=== PATIENT | female | born 1980 | race Caucasian/White ===

== ENCOUNTER 2017-02-08 08:08 | Emergency (ER) | payer BC ==
[2017-02-08] MEDS ORDERED: KETOROLAC 30 MG/ML VIAL IVP ONE (08:39)
[2017-02-08] MEDS ORDERED: 0.9 % SODIUM CHLORIDE 1,000 ML BAG IV ONE (08:39)
--- NOTE | 2017-02-08 09:02 | Emergency Department Record ---
History of Present Illness - General Chief complaint: Nausea, Vomiting, Diarrhea Stated complaint: NAUSEA Time Seen by Provider: 02/08/17 08:24 Source: Patient Mode of Arrival: Ambulatory Limitations: No limitations - History of Present Illness Initial comments: pt has had a headache for 2 wks straight that waxes and wanes but at times is the worst she has had. she also has nausea MD complaint: Nausea Onset/Timin -: Week(s) Description of Diarrhea: Other Severity: Mild Improves with: None Worsens with: Eating - Related Data Home Medications Medication Instructions Recorded Confirmed Last Taken Buspirone HCl [Buspar] 5 mg PO ASDIR 02/08/17 02/08/17 02/08/17 Hydroxyzine Pamoate [Vistaril] 25 mg PO ASDIR 02/08/17 02/08/17 02/08/17 Quetiapine Fumarate [Seroquel] 25 mg PO QHS 02/08/17 02/08/17 02/07/17 Topiramate [Topamax] 15 mg PO ASDIR 02/08/17 02/08/17 02/08/17 Allergies Allergy/AdvReac Type Severity Reaction Status Date / Time No Known Drug Intolerances Allergy Unknown PT UNSURE Verified 02/08/17 08:14 OF REACTION Travel Screening - Travel/Exposure Within Last 30 Days Have you traveled within the last 30 days?: No - Travel/Exposure Within Last Year Have you traveled outside the [place] in the last year?: No - Additonal Travel Details Have you been exposed to anyone with a communicable illness?: No - Travel Symptoms Symptom Screening: None Review of Systems Reviewed: No additional complaints except as noted below Constitutional: Reports: As per HPI. Denies: Chills, Fever, Malaise, Night sweats, Weakness, Weight change Eyes: Reports: As per HPI. Denies: Eye discharge, Eye pain, Photophobia, Vision change ENT: Reports: As per HPI. Denies: Congestion, Dental pain, Ear pain, Epistaxis , Hearing loss, Throat pain Respiratory: Reports: As per HPI. Denies: Cough, Dyspnea, Hemoptysis, Stridor, Wheezes Cardiovascular: Reports: As per HPI. Denies: Arrhythmia, Chest pain, Dyspnea on exertion, Edema, Murmurs, Orthopnea, Palpitations, Paroxysmal nocturnal dyspnea, Rheumatic Fever, Syncope Endocrine: Reports: As per HPI. Denies: Fatigue, Heat or cold intolerance, Polydipsia, Polyuria Gastrointestinal: Reports: As per HPI. Denies: Abdominal pain, Constipation, Diarrhea, Hematemesis, Hematochezia, Melena, Nausea, Vomiting Genitourinary: Reports: As per HPI. Denies: Abnormal menses, Discharge, Dyspareunia, Dysuria, Frequency, Hematuria, Incontinence, Retention, Urgency Musculoskeletal: Reports: As per HPI. Denies: Arthralgia, Back pain, Gout, Joint swelling, Myalgia, Neck pain Skin: Reports: As per HPI. Denies: Bruising, Change in color, Change in hair/ nails, Lesions, Pruritus, Rash Neurological: Reports: As per HPI. Denies: Abnormal gait, Confusion, Headache, Numbness, Paresthesias, Seizure, Tingling, Tremors, Vertigo, Weakness Psychiatric: Reports: As per HPI. Denies: Anxiety, Auditory hallucinations, Depression, Homicidal thoughts, Suicidal thoughts, Visual hallucinations Hematological/Lymphatic: Reports: As per HPI. Denies: Anemia, Blood Clots, Easy bleeding, Easy bruising, Swollen glands Past Medical History - SOCIAL HISTORY Smoking Status: Current some day smoker Alcohol Use: Rare Drug Use: None - RESPIRATORY Hx Respiratory Disorders: No - CARDIOVASCULAR Hx Cardio Disorders: No - NEURO Hx Neuro Disorders: No - GI Hx GI Disorders: Yes Hx Abdominal Pain: Yes - Hx Genitourinary Disorders: No - ENDOCRINE Hx Endocrine Disorders: No - MUSCULOSKELETAL Hx Musculoskeletal Disorders: No - PSYCH Hx Psych Problems: No Hx Anxiety: Yes - HEMATOLOGY/ONCOLOGY Hx Hematology/Oncology Disorders: No Family Medical History Any Significant Family History?: No Physical Exam - General General Appearance: Alert, Oriented x3, Cooperative, Mild distress - Head Head exam: Normal inspection - Eye Eye exam: Normal appearance, PERRL, EOMI Pupils: Normal accommodation - ENT ENT exam: Normal exam, Mucous membranes moist, Normal external ear exam, Normal orophraynx Ear exam: Normal external inspection. negative: External canal tenderness Nasal Exam: Normal inspection. negative: Discharge, Sinus tenderness Mouth exam: Normal external inspection, Tongue normal Teeth exam: Normal inspection. negative: Dental caries Throat exam: Normal inspection. negative: Tonsillar erythema, Tonsillar exudate - Neck Neck exam: Normal inspection, Full ROM. negative: Tenderness - Respiratory Respiratory exam: Normal lung sounds bilaterally. negative: Respiratory distress - Cardiovascular Cardiovascular Exam: Regular rate, Normal rhythm, Normal heart sounds - GI/Abdominal GI/Abdominal exam: Soft, Normal bowel sounds. negative: Tenderness - Rectal Rectal exam: Deferred - exam: Deferred - Extremities Extremities exam: Normal inspection, Full ROM, Normal capillary refill. negative: Tenderness - Back Back exam: Reports: Normal inspection, Full ROM. Denies: Muscle spasm, Rash noted, Tenderness - Neurological Neurological exam: Alert, CN II-XII intact, Normal gait, Oriented X3 - Psychiatric Psychiatric exam: Normal affect, Normal mood - Skin Skin exam: Dry, Intact, Normal color, Warm Course Vital Signs 02/08/17 02/08/17 08:20 08:26 Temperature 97.9 F 97.9 F Pulse Rate 85 85 Respiratory 18 18 Rate Blood Pressure 134/82 134/82 Pulse Ox 100 100 - Reevaluation(s) Reevaluation #1: 02/08/17 10:50 pt feels better Medical Decision Making - Lab Data Result diagrams: 02/08/17 09:00 02/08/17 09:00 Disposition Disposition: Discharge Clinical Impression: Nausea Headache Qualifiers: Headache type: unspecified Headache chronicity pattern: acute headache Intractability: intractable Qualified Code(s): R51 - Headache Disposition: Home, Self-Care Condition: (1) Good Instructions: Acute Headache (ED), Acute Nausea and Vomiting (ED) Additional Instructions: follow up with family doctor and with neurologist. return sooner if worse Forms: Patient Portal Access Quality - Quality Measures Quality Measures: N/A - Blood Pressure Screening Does Patient Have Any of the Following: No Blood Pressure Classification: Pre-Hypertensive BP Reading Systolic Measurement: 134 Diastolic Measurement: 82 Screening for High Blood Pressure: < Pre-Hypertensive BP, F/U Documented > [ G8950] Pre-Hypertensive Follow-up Interventions: Follow-up with rescreen every year.
[2017-02-08 09:23] LABS: BASO % 0.6 % (0-6); EOS % 3.1 % (0-6); GRAN % 64.1 % (47-80); HEMATOCRIT 42.5 % (35.0-47.0); HEMOGLOBIN 14.1 gm/dl (11.6-16.0); LYMPH % 25.1 % (16-45); MEAN CELL VOLUME 87.8 fl (81-97); MEAN CORPUSCULAR HEMOGLOBIN 29.1 pg (27-33); MEAN CORPUSCULAR HGB CONC 33.2 g/dl (32-36); MEAN PLATELET VOLUME 10.7 fl (7.4-10.4); MONO % 7.1 % (0-9); PLATELET COUNT 298 K/uL (130-400); RED BLOOD COUNT 4.84 M/uL (3.80-5.40); RED CELL DISTRIBUTION WIDTH 12.9 % (11.5-14.5); URINE APPEARANCE CLEAR; URINE BILIRUBIN NEGATIVE (NEGATIVE); URINE BLOOD NEGATIVE (NEGATIVE); URINE COLOR YELLOW; URINE GLUCOSE (UA) NEGATIVE (NEGATIVE); URINE KETONE NEGATIVE (NEGATIVE); URINE LEUKOCYTE ESTERASE NEGATIVE (NEGATIVE); URINE NITRITE NEGATIVE (NEGATIVE); URINE PROTEIN NEGATIVE (NEGATIVE); URINE UROBILINOGEN 0.2 E.U./dL (0.20 - 1.00); WHITE BLOOD COUNT W/O DIFF 6.2 K/uL (4.2-12.2)
[2017-02-08 09:39] LABS: BLOOD UREA NITROGEN 16 mg/dL (6-20); CREATININE 0.7 mg/dL (0.5-0.9); EST GLOMERULAR FILTRATION RATE > 60 mL/min
[2017-02-08 09:42] LABS: GLUCOSE,RANDOM 83 mg/dL (74-109)
[2017-02-08 09:54] LABS: THYROID STIMULATING HORMONE 1.53 uIU/mL (0.270-4.20)
[2017-02-08] MEDS ORDERED: DIPHENHYDRAMINE HCL IV 50 MG/ML VIAL IVP ONE (10:03)
[2017-02-08 10:06] LABS: ERYTHROCYTE SEDIMENTATION RATE 5 mm/hr (0-20)
[2017-02-08] MEDS ORDERED: PROMETHAZINE HCL 25 MG in 0.9 % SODIUM CHLORIDE 100ML 100 ML IVPB ONE (10:06)
[2017-02-08] MEDS ORDERED: PROMETHAZINE HCL 12.5 MG in 0.9 % SODIUM CHLORIDE 100ML 100 ML IVPB ONE (10:07)
--- NOTE | 2017-02-08 12:04 | CT SCAN REPORT ---
EXAM: CT SCAN HEAD WO CONTRAST HISTORY: HEADACHE. TECHNIQUE: Routine noncontrast CT examination of the head is performed. COMPARISON: None. FINDINGS: The ventricles and subarachnoid spaces are normal in size. No area of abnormally increased or decreased attenuation is noted throughout the brain substance. No abnormal extraaxial fluid collection is seen. No skull abnormality identified. The mastoid air cells are clear. There are small retention cysts associated with mild mucosal thickening within the maxillary sinuses as well as sphenoid sinuses. There is minor mucosal thickening also noted in several bilateral ethmoid air cells. The orbits as visualized are unremarkable. IMPRESSION: 1. NO INTRACRANIAL ABNORMALITY IDENTIFIED. 2. SMALL RETENTION CYSTS AND MUCOSAL THICKENING SUGGESTED WITHIN THE MAXILLARY SINUSES AND SPHENOID SINUSES. MINOR MUCOSAL THICKENING ALSO DEMONSTRATED WITHIN SEVERAL BILATERAL ETHMOID AIR CELLS. JOB NUMBER: [id number] MTDD
== END 2017-02-08 11:01 | disposition home or self-care (01) ==
LOC: ER 08:08
DX: R51 Headache (principal); R11.0 Nausea; R19.7 Diarrhea, unspecified
CPT/HCPCS: 70450; 80048; 81003; 84443; 85025; 85651; 96365; 96375; 99284; J1200; J1885; J2550; J7030

== ENCOUNTER 2018-09-18 11:21 | Emergency (ER) | payer BC ==
[2018-09-18] MEDS ORDERED: 0.9 % SODIUM CHLORIDE 1,000 ML BAG IV ONE (12:34)
[2018-09-18] MEDS ORDERED: PROMETHAZINE HCL 12.5 MG in 0.9 % SODIUM CHLORIDE 100ML 100 ML IVPB ONE ×2 (12:35→14:47)
[2018-09-18 12:55] LABS: ABSOLUTE NEUTROPHIL COUNT 7.11; BASO % 0.2 % (0-6); EOS % 0.8 % (0-6); GRAN % 73.7 % (47-80); HEMATOCRIT 37.8 % (35.0-47.0); HEMOGLOBIN 12.9 gm/dl (11.6-16.0); LYMPH % 16.4 % (16-45); MEAN CORPUSCULAR HEMOGLOBIN 28.7 pg (27-33); MEAN CORPUSCULAR HGB CONC 34.1 g/dl (32-36); MEAN PLATELET VOLUME 10.4 fl (7.4-10.4); MONO % 8.9 % (0-9); PLATELET COUNT 319 K/uL (130-400); RED CELL DISTRIBUTION WIDTH 13.2 % (11.5-14.5); WHITE BLOOD COUNT W/O DIFF 9.7 K/uL (4.2-12.2)
[2018-09-18 13:09] LABS: BLOOD UREA NITROGEN 10 mg/dL (6-20); CREATININE 0.6 mg/dL (0.5-0.9); EST GLOMERULAR FILTRATION RATE > 60 mL/min
[2018-09-18 13:10] LABS: LIPASE 41 U/L (13-60); TOTAL PROTEIN 7.1 g/dL (6.6-8.7)
[2018-09-18 13:12] LABS: GLUCOSE,RANDOM 97 mg/dL (74-109)
[2018-09-18 13:14] LABS: ALT/SGPT 215 U/L (<33)
[2018-09-18 13:15] LABS: ALB/GLOB RATIO 1.7 (1.1-1.8); ALBUMIN 4.5 g/dL (4.0-5.0); ALKALINE PHOSPHATASE 58 U/L (35-104); AST/SGOT 71 U/L (10.0-35.0)
[2018-09-18] MEDS ORDERED: HYDROMORPHONE HCL 2 MG/ML VIAL IVP ONE (14:46)
[2018-09-18 16:45] LABS: URINE APPEARANCE CLEAR; URINE BILIRUBIN NEGATIVE (NEGATIVE); URINE BLOOD NEGATIVE (NEGATIVE); URINE COLOR YELLOW; URINE GLUCOSE (UA) NEGATIVE (NEGATIVE); URINE KETONE TRACE (NEGATIVE); URINE LEUKOCYTE ESTERASE NEGATIVE (NEGATIVE); URINE NITRITE NEGATIVE (NEGATIVE); URINE PROTEIN NEGATIVE (NEGATIVE); URINE UROBILINOGEN 0.2 E.U./dL (0.20 - 1.00)
--- NOTE | 2018-09-18 17:17 | Emergency Department Record ---
History of Present Illness - General Chief complaint: Nausea, Vomiting, Diarrhea Stated complaint: N/V Time Seen by Provider: 09/18/18 12:12 Source: Patient Mode of Arrival: Stretcher Limitations: No limitations - History of Present Illness Initial comments: pt in for ap and vomiting. she just got out of [facility] for 3 days for vomiting. she had an abnormal hida scan. she is scheduled to see dr houston to have her gb removed complaint: Abdominal pain, Nausea, Vomiting Onset/Timin -: Week(s) Description of Vomiting: Bilious Description of Diarrhea: Green, Mucous Associated Abdominal Pain: Yes Location: RUQ, Epigastric Radiation: Back Severity: Moderate Severity scale (1-10): 5 Improves with: Other Worsens with: None Associated Symptoms: Diaphoresis, Fever/chills, Headaches, Loss of appetite, Nausea/vomiting, Weakness - Related Data Allergies Allergy/AdvReac Type Severity Reaction Status Date / Time acetaminophen [From [place]] AdvReac NAUSEA AND Verified 09/18/18 12:13 VOMITING hydrocodone [From [place]] AdvReac NAUSEA AND Verified 09/18/18 12:13 VOMITING Travel Screening - Travel/Exposure Within Last 30 Days Have you traveled within the last 30 days?: Yes Location Detail:: [place] - Travel Symptoms Symptom Screening: Headache, Joint & Muscle Aches, Weakness, Diarrhea, Vomiting, Stomach Pain, Lack of Appetite Review of Systems Reviewed: No additional complaints except as noted below Constitutional: Reports: As per HPI. Denies: Chills, Fever, Malaise, Night sweats, Weakness, Weight change Eyes: Reports: As per HPI. Denies: Eye discharge, Eye pain, Photophobia, Vision change ENT: Reports: As per HPI. Denies: Congestion, Dental pain, Ear pain, Epistaxis, Hearing loss, Throat pain Respiratory: Reports: As per HPI. Denies: Cough, Dyspnea, Hemoptysis, Stridor, Wheezes Cardiovascular: Reports: As per HPI. Denies: Arrhythmia, Chest pain, Dyspnea on exertion, Edema, Murmurs, Orthopnea, Palpitations, Paroxysmal nocturnal dyspnea, Rheumatic Fever, Syncope Endocrine: Reports: As per HPI. Denies: Fatigue, Heat or cold intolerance, Polydipsia, Polyuria Gastrointestinal: Reports: As per HPI, Abdominal pain, Nausea, Vomiting. Denies: Constipation, Diarrhea, Hematemesis, Hematochezia, Melena Genitourinary: Reports: As per HPI. Denies: Abnormal menses, Discharge, Dyspareunia, Dysuria, Frequency, Hematuria, Incontinence, Retention, Urgency Musculoskeletal: Reports: As per HPI. Denies: Arthralgia, Back pain, Gout, Joint swelling, Myalgia, Neck pain Skin: Reports: As per HPI. Denies: Bruising, Change in color, Change in hair/nails, Lesions, Pruritus, Rash Neurological: Reports: As per HPI. Denies: Abnormal gait, Confusion, Headache, Numbness, Paresthesias, Seizure, Tingling, Tremors, Vertigo, Weakness Psychiatric: Reports: As per HPI. Denies: Anxiety, Auditory hallucinations, Depression, Homicidal thoughts, Suicidal thoughts, Visual hallucinations Hematological/Lymphatic: Reports: As per HPI. Denies: Anemia, Blood Clots, Easy bleeding, Easy bruising, Swollen glands Past Medical History - SOCIAL HISTORY Smoking Status: Former smoker Alcohol Use: None Drug Use: Rare Drug Use Detail:: Marijuana - RESPIRATORY Hx Respiratory Disorders: No - CARDIOVASCULAR Hx Cardio Disorders: No - NEURO Hx Neuro Disorders: No - GI Hx GI Disorders: Yes Hx Abdominal Pain: Yes - Hx Genitourinary Disorders: No - ENDOCRINE Hx Endocrine Disorders: No - MUSCULOSKELETAL Hx Musculoskeletal Disorders: No - PSYCH Hx Psych Problems: No Hx Anxiety: Yes - HEMATOLOGY/ONCOLOGY Hx Hematology/Oncology Disorders: No Family Medical History Any Significant Family History?: Yes Hx Seizures: Mother Physical Exam - General General Appearance: Alert, Oriented x3, Cooperative, Mild distress - Head Head exam: Normal inspection - Eye Eye exam: Normal appearance, PERRL, EOMI Pupils: Normal accommodation - ENT ENT exam: Normal exam, Mucous membranes moist, Normal external ear exam, Normal orophraynx Ear exam: Normal external inspection. negative: External canal tenderness Nasal Exam: Normal inspection. negative: Discharge, Sinus tenderness Mouth exam: Normal external inspection, Tongue normal Teeth exam: Normal inspection. negative: Dental caries Throat exam: Normal inspection. negative: Tonsillar erythema, Tonsillar exudate - Neck Neck exam: Normal inspection, Full ROM. negative: Tenderness - Respiratory Respiratory exam: Normal lung sounds bilaterally. negative: Respiratory distress - Cardiovascular Cardiovascular Exam: Regular rate, Normal rhythm, Normal heart sounds - GI/Abdominal GI/Abdominal exam: Soft, Normal bowel sounds, Guarding, Tenderness (ruq) - Rectal Rectal exam: Deferred - exam: Deferred - Extremities Extremities exam: Normal inspection, Full ROM, Normal capillary refill. negative: Tenderness - Back Back exam: Reports: Normal inspection, Full ROM. Denies: Muscle spasm, Rash noted, Tenderness - Neurological Neurological exam: Alert, CN II-XII intact, Normal gait, Oriented X3 - Psychiatric Psychiatric exam: Normal affect, Normal mood - Skin Skin exam: Dry, Intact, Normal color, Warm Course Vital Signs 09/18/18 09/18/18 12:00 14:50 Temperature 98.8 F Pulse Rate 72 Pulse Rate [ 53 L Pulse Ox Probe] Respiratory 18 18 Rate Blood Pressure 129/84 Blood Pressure 156/79 [Left Arm] Pulse Ox 100 97 Medical Decision Making - Lab Data Result diagrams: 09/18/18 12:47 09/18/18 12:47 Lab Results 09/18/18 09/18/18 09/18/18 Range/Units 12:47 12:47 16:40 WBC 9.7 (4.2-12.2) K/uL RBC 4.50 (3.80-5.40) M/uL Hgb 12.9 (11.6-16.0) gm/dl Hct 37.8 (35.0-47.0) % MCV 84.0 (81-97) fl MCH 28.7 (27-33) pg MCHC 34.1 (32-36) g/dl RDW 13.2 (11.5-14.5) % Plt Count 319 (130-400) K/uL MPV 10.4 (7.4-10.4) fl Gran % 73.7 (47-80) % Lymphocytes % 16.4 (16-45) % Monocytes % 8.9 (0-9) % Eosinophils % 0.8 (0-6) % Basophils % 0.2 (0-6) % Absolute Neutrophils 7.11 Sodium 140 (136-145) mmol/L Potassium 3.6 (3.4-4.5) mmol/L Chloride 107 (98-107) mmol/L Carbon Dioxide 21.0 L (22-29) mmol/L Anion Gap 12.0 (7-16) BUN 10 (6-20) mg/dL Creatinine 0.6 (0.5-0.9) mg/dL Estimated GFR > 60 mL/min Random Glucose 97 (74-109) mg/dL Calcium 9.1 (8.6-10.0) mg/dL Total Bilirubin 0.40 (0.2-1.0) mg/dL AST 71 H (10.0-35.0) U/L ALT 215 H (<33) U/L Alkaline Phosphatase 58 (35-104) U/L Total Protein 7.1 (6.6-8.7) g/dL Albumin 4.5 (4.0-5.0) g/dL Globulin 2.6 (1.4-4.8) gm/dL Albumin/Globulin Ratio 1.7 (1.1-1.8) Lipase 41 (13-60) U/L Urine Color Yellow Urine Appearance Clear Urine pH 7.0 (5.0-8.0) Ur Specific [place] 1.020 (1.002-1.030) Urine Protein Negative (NEGATIVE) Urine Glucose (UA) Negative (NEGATIVE) Urine Ketones Trace H (NEGATIVE) Urine Blood Negative (NEGATIVE) Urine Nitrite Negative (NEGATIVE) Urine Bilirubin Negative (NEGATIVE) Urine Urobilinogen 0.2 (0.20 - 1.00) E.U./dL Ur Leukocyte Esterase Negative (NEGATIVE) Disposition Disposition: Transfer Clinical Impression: Cholecystitis, Biliary colic Disposition: Acute Care Hospital Transfer Transfer To: [facility] Reason For Transfer: needs surgeon Accepting Physician: dr houston Time Discussed w/Accepting Physician: 17:26 Quality - Quality Measures Quality Measures: N/A - Blood Pressure Screening Does Patient Have Any of the Following: No Blood Pressure Classification: Pre-Hypertensive BP Reading Systolic Measurement: 129 Diastolic Measurement: 84 Screening for High Blood Pressure: < Pre-Hypertensive BP, F/U Documented > [G8950] Pre-Hypertensive Follow-up Interventions: Follow-up with rescreen every year.
[2018-09-18] MEDS ORDERED: ONDANSETRON HCL IV 4 MG/2 ML VIAL IVP ONE (18:30)
--- NOTE | 2018-09-19 08:54 | CT SCAN REPORT ---
EXAM: CT OF THE ABDOMEN AND PELVIS WITHOUT CONTRAST HISTORY: ABDOMINAL PAIN. TECHNIQUE: Thin collimation helical CT examination of the abdomen and pelvis was performed without oral or intravenous contrast administration. Lack of oral and IV contrast utilization limits evaluation of the bowel and solid viscera respectively. Comparison: CT abdomen and pelvis with contrast dated 01/26/16. FINDINGS: Lack of oral and IV contrast utilization limits evaluation of the bowel and solid viscera respectively. The lung bases are clear. No pleural or pericardial effusion. The heart is not enlarged. A calcified lymph node is again noted in the low left paraesophageal region measuring 10 mm in diameter consistent with a calcified granuloma. No suspicious focal abnormality demonstrated within the liver, spleen, pancreas, adrenal glands, nor kidneys. Calcified granulomata are scattered within the spleen. One or two calcified granulomata also noted within the liver. No calcified gallstone, gallbladder wall thickening or pericholecystic fluid. No definite biliary ductal dilatation. The vasculature is normal in caliber. No definite intraabdominal nor retroperitoneal lymphadenopathy though evaluation is limited due to a paucity of retroperitoneal fat and mesenteric fat. There is a small amount of free fluid in the cul-de-sac asymmetric to the right. There is possible dominant follicle within the right ovary measuring 1.6 x 2.1 cm. No other evidence of pelvic mass nor adenopathy. No intrinsic urinary bladder abnormality. No gross bowel dilatation nor bowel wall thickening. The appendix is partially visualized and normal in appearance. Its tip is near the free pelvic fluid. No free intraperitoneal air. The abdominal wall is intact. No lytic or blastic bone lesion. IMPRESSION: 1. LACK OF ORAL AND IV CONTRAST UTILIZATION LIMITS EVALUATION OF BOWEL AND SOLID VISCERA. 2. HEALED GRANULOMATOUS DISEASE WITHIN THE LIVER, SPLEEN, AND LOWER THORAX. 3. A SMALL AMOUNT OF FREE FLUID IN THE CUL-DE-SAC IS NONSPECIFIC THOUGH PROBABLY PHYSIOLOGIC. PROBABLE DOMINANT FOLLICLE IN THE RIGHT OVARY MEASURING 1.6 X 2.1 CM. 4. THE APPENDIX IS PARTIALLY VISUALIZED AND NORMAL IN APPEARANCE. JOB NUMBER: [id number] [facility]
== END 2018-09-18 18:45 | disposition short-term general hospital (02) ==
LOC: ER 11:21
DX: K80.46 Calculus of bile duct with acute and chronic cholecystitis without obstruction (principal); R11.2 Nausea with vomiting, unspecified; R19.7 Diarrhea, unspecified; R61 Generalized hyperhidrosis; R51 Headache; Z87.891 Personal history of nicotine dependence
CPT/HCPCS: 74176; 80053; 81003; 83690; 85025; 96361; 96365; 96366; 96375; 99285; J2405; J2550; J7030

== ENCOUNTER 2018-11-19 13:26 | Emergency (ER) | payer BC ==
--- NOTE | 2018-11-19 13:42 | Emergency Department Record ---
History of Present Illness - General Chief complaint: Vomiting Stated complaint: [id number] HOURS,DIARRHEA,COLD SWEATS,ABD PAIN Time Seen by Provider: 11/19/18 13:35 Source: Patient, Family Mode of Arrival: Ambulatory Limitations: No limitations - History of Present Illness Initial comments: 38 yo female presents with nausea and vomiting since yesterday. It has been constant since 10pm. She had her gall bladder removed in September with Dr Flores. No blood in the vomit. No diarrhea. She has associated upper abdominal pain. No fever. Her gall bladder was removed at [facility] with Dr Flores. She has some chronic issues with her appetite and pain with nausea. Her nausea got worse two days ago. She was admitted to [facility] prior to her gall bladder removal for a week with extensive work up. Her GB EF has been known to be low for several years. MD complaint: Abdominal pain, Nausea, Vomiting Description of Vomiting: Watery Description of Diarrhea: Water Location: Epigastric Radiation: Epigastric Severity: Severe Quality: Aching, Constant, Sharp, Stabbing Consistency: Constant Improves with: None Worsens with: Eating Context: History of abdominal surgery - Related Data Home Medications Medication Instructions Recorded Confirmed Last Taken Ondansetron HCl [Zofran] 4 mg PO QID 11/19/18 11/19/18 11/19/18 08:00 Previous Rx's Medication Instructions Recorded Hyoscyamine Sulfate [Levsin-Sl] 0.125 mg SL Q12H #15 tab.subl 11/19/18 Promethazine HCl [Phenergan] 25 mg PO Q8H #15 tablet 11/19/18 Allergies Allergy/AdvReac Type Severity Reaction Status Date / Time hydrocodone [From [place]] AdvReac NAUSEA AND Verified 11/19/18 13:43 VOMITING Review of Systems Constitutional: Denies: Chills, Fever, Malaise, Weakness Eyes: Denies: Eye discharge ENT: Denies: Congestion, Throat pain Respiratory: Denies: Cough, Dyspnea, Hemoptysis, Wheezes Cardiovascular: Denies: Chest pain, Palpitations, Syncope Endocrine: Denies: Fatigue, Polydipsia, Polyuria Gastrointestinal: Reports: As per HPI, Abdominal pain, Nausea, Vomiting. Denies: Constipation, Diarrhea, Hematemesis, Hematochezia Genitourinary: Denies: Dysuria, Urgency Musculoskeletal: Denies: Arthralgia, Back pain, Myalgia Skin: Denies: Bruising, Change in color, Rash Neurological: Denies: Confusion, Headache Psychiatric: Denies: Anxiety Hematological/Lymphatic: Denies: Easy bleeding, Easy bruising Past Medical History - SOCIAL HISTORY Smoking Status: Former smoker Drug Use: Rare Drug Use Detail:: Marijuana - RESPIRATORY Hx Respiratory Disorders: No - CARDIOVASCULAR Hx Cardio Disorders: No - NEURO Hx Neuro Disorders: No - GI Hx GI Disorders: Yes Hx Abdominal Pain: Yes - Hx Genitourinary Disorders: No - ENDOCRINE Hx Endocrine Disorders: No - MUSCULOSKELETAL Hx Musculoskeletal Disorders: No - PSYCH Hx Psych Problems: No Hx Anxiety: Yes - HEMATOLOGY/ONCOLOGY Hx Hematology/Oncology Disorders: No Family Medical History Hx Seizures: Mother Physical Exam - General General Appearance: Alert, Oriented x3, Cooperative, No acute distress Limitations: No limitations - Head Head exam: Atraumatic, Normal inspection - Eye Eye exam: Normal appearance. negative: Conjunctival injection, Scleral icterus - ENT ENT exam: Normal exam, Mucous membranes moist Ear exam: Normal external inspection Nasal Exam: Normal inspection Mouth exam: Normal external inspection - Neck Neck exam: Normal inspection - Respiratory Respiratory exam: Normal lung sounds bilaterally. negative: Accessory muscle use, Decreased breath sounds, Prolonged expiratory, Respiratory distress, Rhonchi, Stridor, Wheezes - Cardiovascular Cardiovascular Exam: Regular rate, Normal rhythm, Normal heart sounds - GI/Abdominal GI/Abdominal exam: Soft, Tenderness (tender upper abdomen but soft) - Rectal Rectal exam: Deferred - exam: Deferred - Extremities Extremities exam: Normal inspection. negative: Tenderness - Back Back exam: Denies: CVA tenderness (R), CVA tenderness (L) - Neurological Neurological exam: Alert, Oriented X3 - Psychiatric Psychiatric exam: Normal affect, Normal mood - Skin Skin exam: Dry, Intact, Normal color, Warm Course - Reevaluation(s) Reevaluation #1: 11/19/18 14:50 The labs were reviewed The CBC demonstrates WBC of 15 The LFT's are normal The HCO3 is 18 with AG of 17 11/19/18 14:51 Lipase is normal 11/19/18 14:59 Recheck improved but still some upper abdominal tenderness but doing much better after medication Her nausea and pain are controlled CT was ordered however given her recent surgery, initial presentation with pain and elevated WBC count 10/06/19 16:19 UA is negative HCG is negative 11/19/18 18:[address] of the abdomen and pelvis are negative for any acute process 11/19/18 18:13 The patient continues to be greatly improved. Her pain and nausea are well controlled. We discussed the results of the tests and questions were answered at the time of discharge. The patient is doing well and is comfortable with DC. DC vitals were reviewed. We discussed at length reasons to immediately return to the ED as well as close follow up. The patient will call the PCP for close follow up of this ED visit to review this visit and the tests performed 11/19/18 18:19 Medical Decision Making - Lab Data Result diagrams: 11/19/18 13:50 11/19/18 13:50 Disposition Disposition: Discharge Clinical Impression: Abdominal pain Qualifiers: Abdominal location: unspecified location Qualified Code(s): R10.9 - Unspecified abdominal pain Nausea and vomiting Qualifiers: Vomiting type: unspecified Vomiting Intractability: non-intractable Qualified Code(s): R11.2 - Nausea with vomiting, unspecified Disposition: Home, Self-Care Condition: (1) Good Instructions: Acute Nausea and Vomiting (ED), Abdominal Pain (ED) Additional Instructions: Review this ER visit and the tests performed with your family doctor Call your doctor for the next available follow up appointment Return to the ER for a recheck if worse, any new concerns or questions Take the prescriptions provided as directed Prescriptions: Hyoscyamine Sulfate [Levsin-Sl] 0.125 mg SL Q12H #15 tab.subl Promethazine HCl [Phenergan] 25 mg PO Q8H #15 tablet Forms: Patient Portal Access Time of Disposition: 18:13 Quality - Quality Measures Quality Measures: N/A - Blood Pressure Screening Does Patient Have Any of the Following: No Blood Pressure Classification: Pre-Hypertensive BP Reading Systolic Measurement: 144 Diastolic Measurement: 85 Screening for High Blood Pressure: < Pre-Hypertensive BP, F/U Documented > [G8950] Pre-Hypertensive Follow-up Interventions: Referral to alternative/primary care provider.
[2018-11-19] MEDS: ONDANSETRON HCL IV 4 MG/2 ML VIAL IVP ONE (13:48)
[2018-11-19] MEDS: HYDROMORPHONE HCL 2 MG/ML VIAL IVP ONE (13:49)
[2018-11-19] MEDS: 0.9 % SODIUM CHLORIDE 1,000 ML BAG IV ONE (13:49)
[2018-11-19 14:10] LABS: ABSOLUTE NEUTROPHIL COUNT 13.92; HEMATOCRIT 41.1 % (35.0-47.0); HEMOGLOBIN 13.5 gm/dl (11.6-16.0); MEAN CELL VOLUME 86.7 fl (81-97); MEAN CORPUSCULAR HEMOGLOBIN 28.5 pg (27-33); MEAN CORPUSCULAR HGB CONC 32.8 g/dl (32-36); MEAN PLATELET VOLUME 10.9 fl (7.4-10.4); PLATELET COUNT 321 K/uL (130-400); RED BLOOD COUNT 4.74 M/uL (3.80-5.40); RED CELL DISTRIBUTION WIDTH 13.5 % (11.5-14.5); WHITE BLOOD COUNT W/O DIFF 15.2 K/uL (4.2-12.2)
[2018-11-19] MEDS: DIPHENHYDRAMINE HCL 50 MG/ML VIAL IVP ONE (14:15)
[2018-11-19 14:29] LABS: PLATELET ESTIMATE NORMAL (NORMAL)
[2018-11-19 14:31] LABS: BLOOD UREA NITROGEN 17 mg/dL (6-20); CREATININE 0.6 mg/dL (0.5-0.9); EST GLOMERULAR FILTRATION RATE > 60 mL/min
[2018-11-19 14:32] LABS: LIPASE 43 U/L (13-60); TOTAL PROTEIN 8.3 g/dL (6.6-8.7)
[2018-11-19 14:34] LABS: GLUCOSE,RANDOM 151 mg/dL (74-109)
[2018-11-19 14:36] LABS: ALT/SGPT 15 U/L (<33)
[2018-11-19 14:37] LABS: ALB/GLOB RATIO 2.1 (1.1-1.8); ALBUMIN 5.6 g/dL (4.0-5.0); ALKALINE PHOSPHATASE 65 U/L (35-104); AST/SGOT 39 U/L (10.0-35.0)
[2018-11-19] MEDS: 0.9 % SODIUM CHLORIDE 1000ML 1,000 ML IV ONE (15:14)
[2018-11-19 15:39] LABS: URINE APPEARANCE CLEAR; URINE BILIRUBIN NEGATIVE (NEGATIVE); URINE BLOOD NEGATIVE (NEGATIVE); URINE COLOR YELLOW; URINE GLUCOSE (UA) NEGATIVE (NEGATIVE); URINE LEUKOCYTE ESTERASE NEGATIVE (NEGATIVE); URINE NITRITE NEGATIVE (NEGATIVE); URINE UROBILINOGEN 0.2 E.U./dL (0.20 - 1.00)
[2018-11-19 15:42] LABS: HCG,QUALITATIVE URINE NEGATIVE (NEGATIVE); URINE KETONE 160 mg/dL (NEGATIVE)
--- NOTE | 2018-11-20 13:47 | CT SCAN REPORT ---
EXAM: CT OF THE ABDOMEN AND PELVIS WITH CONTRAST HISTORY: MID ABDOMINAL PAIN, CHOLECYSTECTOMY ONE MONTH PRIOR. TECHNIQUE: Standard CT imaging of the abdomen and pelvis was obtained following the IV administration of contrast. Comparison: Noncontrast CT 09/18/18. FINDINGS: The lung bases are clear. The liver appears normal. The gallbladder has been resected. No fluid in the gallbladder fossa. The common bile duct is normal in diameter. The pancreas and spleen appear normal. The adrenal glands are normal. The kidneys are unremarkable. The bladder is unremarkable. The stomach and small bowel are unremarkable. Oral contrast has passed into the colon. No pericolonic inflammation. The appendix is normal. Retroverted uterus. No pelvic masses. Trace free fluid in the pelvis is likely physiologic. No free air is seen. No retroperitoneal adenopathy. The bones appear normal. IMPRESSION: NEGATIVE CT OF THE ABDOMEN AND PELVIS STATUS POST CHOLECYSTECTOMY. JOB NUMBER: [id number]
== END 2018-11-19 18:26 | disposition home or self-care (01) ==
LOC: ER 13:26
DX: R10.31 Right lower quadrant pain (principal); R11.2 Nausea with vomiting, unspecified; Z87.891 Personal history of nicotine dependence
CPT/HCPCS: 74177; 80053; 81003; 81025; 83690; 85027; 96361; 96374; 96375; 99284; J1200; J2405; J7030